=== PATIENT | female | born 2000 | race Caucasian/White ===

== ENCOUNTER 2021-12-08 13:13 | Inpatient (IN) | payer BC ==
[~2021-12-08 13:13] MED LIST: BUPIVACAINE HCL/PF 0.5% (5MG/ML) 10 ML VIAL IJ ONE
[2021-12-08 13:53] LABS: HCG,QUALITATIVE URINE Negative
[2021-12-08 13:58] LABS: HEMATOCRIT 42.2 % (32.4-45.2); HEMOGLOBIN 14.6 G/dL (10.7-15.3); INR 0.9 (0.83-1.09); MCHC 34.5 g/dl (32.0-36.0); MEAN CELL VOLUME 86.9 fl (80-96); MEAN PLT VOLUME 8.1 fl (7.5-11.1); PLATELET COUNT 404.6 10^3/uL (134-434); PROTHROMBIN TIME (PATIENT) 10.3 SEC (9.7-13.0); RBC 4.86 10^6/uL (3.60-5.2); RDW 13.8 % (11.6-15.6); WHITE BLOOD COUNT 7.6 10^3/uL (4.0-10.8)
[2021-12-08 14:00] LABS: ACTIVATED PTT 30.5 SECONDS (25.2-36.5)
[2021-12-08 14:04] LABS: ALBUMIN 4.1 g/dl (3.4-5.0); BILIRUBIN,TOTAL 0.5 mg/dl (0.2-1); CALCIUM 8.8 mg/dl (8.5-10); CREATININE 0.7 mg/dl (0.55-1.3)
[2021-12-08] MEDS ORDERED: ACETAMINOPHEN 1000 MG/100 ML BAG IVPB ONE (14:08)
[2021-12-08] MEDS ORDERED: KETOROLAC TROMETHAMINE 15 MG/ML VIAL IVPUSH ONE (14:08)
[2021-12-08] MEDS ORDERED: KETOROLAC TROMETHAMINE 15 MG/ML VIAL ONE (14:29)
[2021-12-08] MEDS ORDERED: ACETAMINOPHEN INJECTION 100 ML IVPB ONE (14:29)
[2021-12-08] MEDS ORDERED: oxyCODONE HCL 5 MG TABLET PO ONE (15:46)
[2021-12-08] MEDS ORDERED: SUCCINYLCHOLINE CHLORIDE 200 MG/10 ML SYRINGE ONE (22:13)
[2021-12-08] MEDS ORDERED: MIDAZOLAM HCL 2 MG/2 ML SINGLE DOSE VIAL ONE ×2 (22:13→23:48)
[2021-12-08] MEDS ORDERED: PROPOFOL 20 ML ONE (22:13)
[2021-12-08] MEDS ORDERED: ROCURONIUM BROMIDE 100 MG/10 ML VIAL ONE (22:13)
[2021-12-08] MEDS ORDERED: BUPIVACAINE HCL/PF 0.5% (5MG/ML) 10 ML VIAL ONE (22:35)
[2021-12-08] MEDS ORDERED: ceFAZolin SODIUM 1 GM VIAL ONE (22:45)
[2021-12-08] MEDS ORDERED: ONDANSETRON 4 MG/2 ML VIAL ONE (22:45)
[2021-12-08] MEDS ORDERED: DEXAMETHASONE SOD PHOSPHATE 4 MG/1 ML VIAL ONE (22:45)
[2021-12-08] MEDS ORDERED: KETOROLAC TROMETHAMINE 30 MG/1 ML VIAL ONE (22:45)
[2021-12-08] MEDS ORDERED: ceFAZolin SODIUM 1 GM VIAL IVPB ONE (22:46)
[2021-12-08] MEDS ORDERED: HYDROmorphone HCl 2 MG/ML VIAL ONE (23:59)
[2021-12-09] MEDS ORDERED: ONDANSETRON 4 MG/2 ML VIAL IVPUSH PRN (00:05)
[2021-12-09] MEDS ORDERED: ACETAMINOPHEN 1000 MG/100 ML BAG IVPB PRN ×2 (00:06→00:30)
[2021-12-09] MEDS ORDERED: LACTATED RINGERS SOLUTION 1,000 ML IV SCH ×2 (00:15→00:30)
[2021-12-09] MEDS: HYDROmorphone HCl 2 MG/ML VIAL IVPUSH PRN ×2 (00:20)
[2021-12-09] MEDS ORDERED: IBUPROFEN 800 MG/8 ML IJ IVPB PRN (00:29)
[2021-12-09 07:37] VITALS: BMI 24.8
[2021-12-09] MEDS ORDERED: IBUPROFEN 600 MG TABLET (FP) PO PRN ×2 (08:55→09:48)
[2021-12-09] MEDS ORDERED: ACETAMINOPHEN 500 MG TABLET (FP) PO PRN ×2 (08:59→09:48)
[2021-12-09 09:54] VITALS: BP 126/75; PULSE 85; RESP 17; TEMP 98.3
[2021-12-09] MEDS ORDERED: MONTELUKAST NA 10 MG TABLET PO SCH (10:00)
== END 2021-12-09 11:17 | disposition home or self-care (01) | DRG 743 ==
LOC: FER 13:13 → J7W 20:30
PROVIDERS: ADMIT Specialist; ATTEND Specialist
PROC: 0UB04ZZ Excision of Right Ovary, Percutaneous Endoscopic Approach (ICD-10-PCS; principal; 2021-12-09)
PROC: 3E1P88Z Irrigation of Female Reproductive using Irrigating Substance, Via Natural or Artificial Opening Endoscopic (ICD-10-PCS; 2021-12-09)
DX: N83.291 Other ovarian cyst, right side (principal); R10.2 Pelvic and perineal pain; N83.511 Torsion of right ovary and ovarian pedicle
CPT/HCPCS: 36415; 76830-TC; 80053; 81003; 84703; 85027; 85610; 85730; 86850; 86900; 86901; 88307-TC; 94760; 99285-25; C9803-CS; U0003; U0005

== ENCOUNTER 2022-06-30 01:58 | Emergency (ER) | payer BC ==
[2022-06-30 02:18] VITALS: BMI 24.7
[2022-06-30] MEDS ORDERED: ONDANSETRON 4 MG/2 ML VIAL ONE ×2 (02:26→04:57)
[2022-06-30] MEDS ORDERED: SODIUM CHLORIDE 0.9% 500 ML INFUS.BAG IV ONE (02:31)
[2022-06-30] MEDS ORDERED: ONDANSETRON 4 MG/2 ML VIAL IVPUSH ONE ×2 (02:31→04:57)
[2022-06-30] MEDS ORDERED: ACETAMINOPHEN 1000 MG/100 ML BAG IVPB ONE (02:32)
[2022-06-30 02:52] LABS: BASO % 0.3 % (0-2.0); HEMATOCRIT 39.3 % (32.4-45.2); HEMOGLOBIN 13.4 GM/dL (10.7-15.3); LYMPH % 14.9 % (8-40); MCH 29.4 pg (25.7-33.7); MEAN CELL VOLUME 86.3 fl (80-96); MEAN PLT VOLUME 8.2 fl (7.5-11.1); MONO % 7.3 % (3.8-10.2); NEUT % 76.5 % (42.8-82.8); PLATELET COUNT 351 10^3/uL (134-434); RBC 4.56 M/mm3 (3.60-5.2); RDW 13.3 % (11.6-15.6); WHITE BLOOD COUNT 12.1 K/mm3 (4.0-10.0)
[2022-06-30 03:02] LABS: INR 0.97 (0.83-1.09); PROTHROMBIN TIME (PATIENT) 11.3 SEC (9.7-13.0)
[2022-06-30 03:04] LABS: ACTIVATED PTT 30.3 SECONDS (25.2-36.5)
[2022-06-30 03:06] LABS: CALCIUM 8.8 mg/dL (8.5-10.1)
[2022-06-30 03:07] LABS: ALBUMIN 3.9 g/dl (3.4-5.0)
[2022-06-30 03:10] LABS: CREATININE 0.9 mg/dL (0.55-1.3)
[2022-06-30 03:12] LABS: BILIRUBIN,TOTAL 0.3 mg/dL (0.2-1); TOT PROT 7.2 g/dl (6.4-8.2)
[2022-06-30] MEDS ORDERED: KETOROLAC TROMETHAMINE 15 MG/ML VIAL IVPUSH ONE (04:52)
[2022-06-30] MEDS ORDERED: KETOROLAC TROMETHAMINE 15 MG/ML VIAL ONE (04:53)
[2022-06-30 05:34] LABS: EPI CELLS >36 /uL (0-25.1); HYALINE CASTS 1 /uL (0-3.1); URINE APPEARANCE CLEAR; URINE BACTERIA 125 /uL (0-1359); URINE BILIRUBIN NEGATIVE (NEGATIVE); URINE COLOR DK YELLOW; URINE GLUCOSE (UA) NEGATIVE (NEGATIVE); URINE KETONE TRACE (NEGATIVE); URINE LEUK ESTERASE NEGATIVE (NEGATIVE); URINE NITRITE NEGATIVE (NEGATIVE); URINE PROTEIN 1+ (NEGATIVE); URINE RBC 13 /uL (0-23.9); URINE UROBILINOGEN 0.2 mg/dL (0.2-1.0); URINE WBC 29 /uL (0-25.8)
[2022-06-30] MEDS ORDERED: METOCLOPRAMIDE HCL INJECTION 10 MG/2 ML VIAL IVPB ONE (07:10)
[2022-06-30] MEDS ORDERED: FAMOTIDINE 20 MG/50 ML IVPB 20 MG/50 ML MG IVPB ONE ×2 (07:11→07:29)
[2022-06-30] MEDS ORDERED: METOCLOPRAMIDE HCL INJECTION 10 MG/2 ML VIAL ONE (07:29)
[2022-06-30 10:33] VITALS: BP 123/67; PULSE 90; RESP 20; TEMP 100.3
== END 2022-06-30 10:40 | disposition home or self-care (01) ==
LOC: JER 01:58
PROC: 3E033GC Introduction of Other Therapeutic Substance into Peripheral Vein, Percutaneous Approach (ICD-10-PCS; principal; 2022-06-30)
PROC: 3E0333Z Introduction of Anti-inflammatory into Peripheral Vein, Percutaneous Approach (ICD-10-PCS; 2022-06-30)
PROC: 3E033GC Introduction of Other Therapeutic Substance into Peripheral Vein, Percutaneous Approach (ICD-10-PCS; 2022-06-30)
PROC: 3E033GC Introduction of Other Therapeutic Substance into Peripheral Vein, Percutaneous Approach (ICD-10-PCS; 2022-06-30)
DX: R10.2 Pelvic and perineal pain (principal)
CPT/HCPCS: 36415; 74177-TC; 76830-TC; 76856-TC; 80053; 81003; 83690; 84703; 85025; 85610; 85730; 86850; 86900; 86901; 87086; 93005; 93010; 99285-25; Q9967

== ENCOUNTER 2024-08-27 23:27 | Emergency (ER) | payer BC ==
[2024-08-27 23:38] VITALS: BP 118/80; PULSE 86; RESP 16; TEMP 98.1; BMI 25.0
== END 2024-08-27 23:46 | disposition home or self-care (01) ==
LOC: FER 23:27
DX: S93.402A Sprain of unspecified ligament of left ankle, initial encounter (principal); X50.1XXA Overexertion from prolonged static or awkward postures, initial encounter
CPT/HCPCS: 99282-25